=== PATIENT | female | born 1955 | race Caucasian/White ===

== ENCOUNTER 2018-10-27 17:36 | Emergency (ER) | payer MEDICAID ==
[~2018-10-27] VITALS: Ht 160 cm; Wt 61.2 kg
[~2018-10-27 17:36] MED LIST: atenolol; lamictal
[2018-10-27 18:08] VITALS: BP 114/61
[2018-10-27] MEDS ORDERED: lamoTRIgine 100 MG TAB PO ONE (18:15)
[2018-10-27 18:49] LABS: Basophils # (auto) 0.1 uL; Basophils % (auto) 0.6 % (0.0-2.0); Eosinophils # (auto) 0.1 uL; Hematocrit 46.6 % (36.0-46.0); Hemoglobin 15.9 g/dL (12.2-16.2); Lymphocytes # (auto) 1.9 uL; Mean Corpuscular Hgb Conc. 34.2 g/dL (32.0-36.0); Mean Corpuscular Volume 96.7 fL (80.0-100.0); Monocytes # (auto) 0.7 uL; Monocytes % (auto) 5.7 % (0.0-12.0); Neutrophils # (auto) 9.7 uL; Neutrophils % (auto) 77.7 % (37.0-80.0); Platelet Count (auto) 275 10^3/uL (140-450); Red Blood Cells 4.81 10^6/uL (4.0-5.20); Red Cell Distribution Width 13.4 % (11.8-14.3); White Blood Cell 12.4 10^3/uL (4.4-10.8)
[2018-10-27 19:03] LABS: Albumin 4.1 g/dL (3.4-5.0); Calcium 9.2 mg/dL (8.5-10.1); Potassium 3.7 mmol/L (3.5-5.1)
[2018-10-27 19:05] LABS: BUN/Creatinine Ratio 8.5
[2018-10-27 19:07] LABS: Bilirubin, Total 0.4 mg/dL (0.2-1.0); Total Protein 7.5 g/dL (6.4-8.2)
== END 2018-10-27 20:46 | disposition home or self-care (01) ==
LOC: ER 17:36 → EDBD 17:36 → ER 20:46
DX: G40.89 Other seizures (principal); I10 Essential (primary) hypertension; F17.210 Nicotine dependence, cigarettes, uncomplicated; F12.10 Cannabis abuse, uncomplicated; Z91.19 Patient's noncompliance with other medical treatment and regimen
CPT/HCPCS: 36415; 80053; 85025; 93005

== ENCOUNTER 2020-06-26 11:19 | Emergency (ER) | payer MEDICAID, OTHER ==
[~2020-06-26] VITALS: Ht 162.6 cm; Wt 65.8 kg
[2020-06-26] MEDS ORDERED: SODIUM CHLORIDE 0.9% 1,000 ML IV ONE ×2 (11:30)
[2020-06-26 12:03] LABS: Basophils # (auto) 0.1 10 ^3/uL (0-0.2); Basophils % (auto) 0.8 % (0.0-2.0); Eosinophils # (auto) 0.2 10 ^3/uL (0-0.8); Eosinophils % (auto) 1.7 % (0.0-7.0); Hematocrit 43.6 % (36.0-46.0); Hemoglobin 14.8 g/dL (12.2-16.2); Lymphocytes # (auto) 3.3 10 ^3/uL (0.4-5.4); Lymphocytes % (auto) 33.4 % (10.0-50.0); Mean Corpuscular Hemoglobin 33.2 pg (28.0-32.0); Mean Corpuscular Hgb Conc. 33.9 g/dL (32.0-36.0); Mean Corpuscular Volume 97.8 fL (80.0-100.0); Monocytes # (auto) 0.5 10 ^3/uL (0-1.3); Monocytes % (auto) 5.1 % (0.0-12.0); Neutrophils # (auto) 5.9 10 ^3/uL (1.6-8.6); Nucleated Red Blood Cells % 0.1 %; Red Blood Cells 4.46 10^6/uL (4.0-5.20); Red Cell Distribution Width 14.2 % (11.8-14.3)
[2020-06-26 12:08] LABS: Urine Bacteria FEW /hpf (None Seen); Urine Blood Negative /uL (Negative); Urine Specific Gravity 1.005 (1.001-1.035); Urine WBC 28 /hpf (0 - 5)
[2020-06-26 12:21] LABS: Albumin 3.8 g/dL (3.4-5.0); Calcium 8.7 mg/dL (8.5-10.1); Potassium 3.9 mmol/L (3.5-5.1)
[2020-06-26 12:23] LABS: Alcohol, Urine < 3.0 mg/dL (0-10); Amphetamine Screen, Urine NEGATIVE (NEGATIVE); Barbiturate Scree,Urine NEGATIVE (NEGATIVE); Benzodiazephine Screen, Urine NEGATIVE (NEGATIVE); Cannabinoid Screen, Urine POSITIVE (NEGATIVE); Cocaine Screen, Urine NEGATIVE (NEGATIVE); Opiate Scree,Urine NEGATIVE (NEGATIVE); Phencyclidine Screen, Urine NEGATIVE (NEGATIVE)
[2020-06-26 12:24] LABS: BUN/Creatinine Ratio 11.4; Bilirubin, Total 0.3 mg/dL (0.2-1.0); Total Protein 6.9 g/dL (6.4-8.2)
[2020-06-26] MEDS ORDERED: cefTRIAXone 1GM/50ML D5W 50 ML IV ONE (13:30)
[2020-06-26] MEDS ORDERED: IOHEXOL 350 MG/ML 100ML IJ ONE (14:07)
[2020-06-26] MEDS ORDERED: NOREPINEPHRINE 8 MG/250ML KIT 250 ML IV ONE (14:55)
[2020-06-26] MEDS ORDERED: NOREPINEPHRINE 8 MG/250ML KIT 250 ML IV SCH (15:00)
[2020-06-26 17:28] VITALS: BP 89/54
== END 2020-06-26 17:52 | disposition short-term general hospital (02) ==
LOC: ER 11:19 → EDUNIT# 11:19 → EDBD 11:19 → ER 17:52
DX: G93.41 Metabolic encephalopathy (principal); N39.0 Urinary tract infection, site not specified; I95.9 Hypotension, unspecified; R41.82 Altered mental status, unspecified; R07.9 Chest pain, unspecified
CPT/HCPCS: 36415; 70450; 71045; 71260; 74177; 80053; 80307; 81001; 84484; 85025; 96361; 96365; 96366; 96367; 99285; J0696; J7030; Q9967